=== PATIENT | male | born 1995 | race Caucasian/White ===

== ENCOUNTER → 2021-05-29 | Outpatient (CLI) | payer BC, SELFPAY | END | disposition home or self-care (01) | PROVIDERS: Visit Provider Physician Assistant | DX: U07.1 COVID-19 (principal) | CPT/HCPCS: 87635; U0005; U0003 ==

== ENCOUNTER 2021-06-03 15:01 | Outpatient (CLI) | payer BC, SELFPAY ==
[2021-06-03] MEDS: 0.9% Saline Lock 10 ML Syringe IV (15:16)
[2021-06-03 15:19] VITALS: BP 130/89; PULSE 65; RESP 16; TEMP 36.7; O2SAT 100; BMI 27.8
[2021-06-03 16:05] VITALS: BP 109/82; PULSE 56; RESP 16; TEMP 37.1; O2SAT 100
[2021-06-03 16:54] VITALS: BP 143/68; PULSE 65; RESP 16; TEMP 36.9; O2SAT 100
== END 2021-06-03 16:54 | disposition home or self-care (01) ==
LOC: MS2OUT 15:02 → MS2 15:02
PROVIDERS: Referring Provider Nurse Practitioner Adult Health; Visit Provider Nurse Practitioner Adult Health
DX: Z23 Encounter for immunization (principal); U07.1 COVID-19
CPT/HCPCS: J7050; M0243; A4216; Q0244

== ENCOUNTER → 2021-07-12 11:35 | Outpatient (CLI) | payer BC, SELFPAY ==
[2021-07-12 15:01] LABS: Absolute Lymphocyte Count 1.64 X10^3/uL (0.83-4.51); Absolute Neutrophil Count 3.1 X10^3/uL (2.0-7.7); Basophil# 0.02 X10^3/uL; Basophil% 0.4 % (0-1); Eosinophil# 0.08 X10^3/uL; Eosinophils% 1.5 % (0-5); Hematocrit 41.2 % (40-54); Hemoglobin 13.9 g/dL (13.0-16.5); Lymphocyte # 1.64 X10^3/ul (0.83-4.51); Mean Corp Hgb Conc 33.7 g/dL (32-36); Mean Corpuscular Hgb 31.4 pg (27.0-32.0); Mean Platelet Vol. 9.7 fl (6.2-12.0); Monocyte# 0.59 X10^3/uL; Monocyte% 10.8 % (0-10); NRBC Flagged by Analyzer 0 % (0-5); Neutrophil # 3.13 X10^3/uL (2.7-7.7); Neutrophil % 57.1 % (47-70); Platelet Count 370 K/mm3 (150-450); RBC Distribution Width CV 12.7 % (11.6-14.6); RBC Distribution Width SD 43.5 fl (35.1-43.9); Red Blood Count 4.43 M/mm3 (4.6-6.2); White Blood Count 5.5 K/mm3 (4.4-11.0)
[2021-07-12 15:40] LABS: ALB/GLOB Ratio 1.2 RATIO (0.9-2.4); AST(SGOT) 12 U/L (15-37); Alanine Aminotransfer ALT/SGPT 28 U/L (16-61); Alkaline Phosphatase 63 U/L (45-117); Anion Gap 7 (5-15); BUN 11 mg/dL (7-18); BUN/Creat Ratio 14.2 RATIO (10-20); Calcium,Total 8.9 mg/dL (8.5-10.1); Chloride 104 mmol/L (98-107); Cholesterol 121 mg/dL (200); Creatinine, Serum 0.78 mg/dL (0.70-1.30); EST Glomerular Filtration Rate 127 mL/min (>60); Est Glom Filt Rate - Afr Amer 153 mL/min (>60); Globulin 3.4 g/dL (2.2-4.2); Glucose 90 mg/dL (74-106); High Density Lipoprotein 51 mg/dL; Potassium 3.7 mmol/L (3.5-5.1); Protein, Total 7.4 g/dL (6.4-8.2); Sodium Level 138 mmol/L (136-145); Thyroid Stim Hormone (TSH) 0.52 uIU/mL (0.358-3.74); Triglycerides 58 mg/dL; Very Low Density Lipoprotein 12 mg/dL (5-40)
[2021-07-17 17:02] LABS: Testosterone, Free 11.48 ng/dL (5.00-21.00)
[2021-07-19 13:29] LABS: Testosterone, % Free 4.22 % (1.50-4.20)
== END ==
PROVIDERS: Referring Provider Nurse Practitioner Family; Visit Provider Nurse Practitioner Family
DX: Z00.00 Encounter for general adult medical examination without abnormal findings (principal)
CPT/HCPCS: 36415; 80053; 80061; 84402; 84403; 84443; 85025

== ENCOUNTER → 2023-03-09 | Outpatient (CLI) | payer BC, SELFPAY ==
--- NOTE | 2023-03-09 17:08 | US_ITS ---
STUDY: SUPERFICIAL ULTRASOUND - BILATERAL HIPS REASON FOR EXAM: Male, 27 years old. SUBCUTANEOUS NODULES - JUST ABOVE HIPS BILATERALY TECHNIQUE: A superficial ultrasound was performed with real-time and static casillas-scale imaging. COMPARISON: None. FINDINGS: No definite abnormality seen. Normal soft tissue planes. Electronically Signed: Jacob Sanchez MD at 13:25 EDT , US/Ext Non Vasc Limited/Soft Tiss IMPRESSION: undefined
== END | disposition home or self-care (01) ==
PROVIDERS: PCP Internal Medicine; Referring Provider Internal Medicine; Visit Provider Internal Medicine
DX: R22.9 Localized swelling, mass and lump, unspecified (principal)
CPT/HCPCS: 76882

== ENCOUNTER → 2024-01-27 | Outpatient (CLI) | payer BC, SELFPAY ==
--- NOTE | 2024-01-27 09:22 | RAD_ITS ---
STUDY: X-RAY - LEFT FOOT CLINICAL: Male, 28 years old. Pain. TECHNIQUE: 3 views of the left foot. COMPARISON: None. FINDINGS: Normal talus, calcaneus, and tarsal bones. Normal visualized subtalar, talonavicular, calcaneocuboid, tarsal and tarsometatarsal articulations. Normal metatarsi. Normal metatarsophalangeal joint of the great toe. Normal tibial and fibular sesamoid bones. Normal interphalangeal joint of the great toe. Normal phalanges of the great toe. Normal second through fifth metatarsophalangeal joints. Normal interphalangeal joints and phalanges of the lesser toes. The soft tissue structures are unremarkable. There is no demonstrated fracture. RAD/Foot min 3 Views IMPRESSION: Normal x-ray examination of the left foot. Electronically Signed: Keon Anderson MD at 10:02 EDT ,
== END | disposition home or self-care (01) ==
PROVIDERS: PCP Internal Medicine; Referring Provider Physician Assistant; Visit Provider Physician Assistant
DX: M79.672 Pain in left foot (principal)
CPT/HCPCS: 73630

== ENCOUNTER 2024-04-30 18:24 | Emergency (ER) | payer OTHER, SELFPAY ==
[2024-04-30 18:25] VITALS: BP 126/79; PULSE 87; RESP 16; TEMP 36.3; O2SAT 98
[2024-04-30 18:36] VITALS: BMI 27.1
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
[2024-04-30 21:04] VITALS: BP 126/71; PULSE 69; RESP 16; TEMP 36.6; O2SAT 99
== END 2024-04-30 21:04 | disposition home or self-care (01) ==
PROVIDERS: Emergency Provider Emergency Medicine; PCP Internal Medicine; Visit Provider Emergency Medicine
DX: S90.32XA Contusion of left foot, initial encounter (principal); S93.602A Unspecified sprain of left foot, initial encounter; V94.9XXA Unspecified water transport accident, initial encounter
CPT/HCPCS: 73630; 99284

== ENCOUNTER → 2024-05-09 | Outpatient (CLI) | payer BC, SELFPAY ==
--- NOTE | 2024-05-09 08:00 | US_ITS ---
STUDY: SCROTUM ULTRASOUND REASON FOR EXAM: Male, 29 years old. Scrotal varices TECHNIQUE: Ultrasound evaluation of the scrotum was performed with color Doppler and static casillas-scale imaging. COMPARISON: None. FINDINGS: RIGHT TESTICLE INTRATESTICULAR: There is a normal size of the right testicle. The right testicle measures 4.4 cm x 3.3 cm x 2.3 cm. There is a homogenous echotexture. There is normal arterial and normal venous vascularity. There is no demonstrated right testicular mass or cyst. EXTRATESTICULAR: The epididymis is normal in size. The epididymis head measures 0.9 cm x 1.1 cm x 0.8 cm. There is normal vascularity of the epididymis. There is no demonstrated epididymal cystic structure. There is a small hydrocele. There are prominent extratesticular veins consistent with a varicocele. There is no demonstrated extratesticular mass or cyst. LEFT TESTICLE INTRATESTICULAR: There is a normal size of the left testicle. The left testicle measures 4 cm x 2.9 cm x 2.3 cm. There is a homogenous echotexture. There is normal arterial and normal venous vascularity. There is no demonstrated left testicular mass or cyst. EXTRATESTICULAR: The epididymis is normal in size. The epididymis head measures 0.8 cm x 1.1 cm x 1.3 cm. There is normal vascularity of the epididymis. There is no demonstrated epididymal cystic structure. There is a small hydrocele. There are prominent extratesticular veins consistent with a varicocele. There is no demonstrated extratesticular mass or cyst. US/Testicular with Arterial Flow IMPRESSION: Small bilateral hydroceles. Bilateral varicoceles. Electronically Signed: Familia Keys MD at 15:07 EDT ,
== END | disposition home or self-care (01) ==
PROVIDERS: PCP Internal Medicine; Referring Provider Urology; Visit Provider Urology
DX: I86.1 Scrotal varices (principal)
CPT/HCPCS: 76870; 93976

== ENCOUNTER → 2024-05-17 | Outpatient (CLI) | payer BC, SELFPAY ==
[2024-05-17 13:53] LABS: Hematocrit 42.9 % (40-54); Hemoglobin 14.5 g/dL (13.0-16.5)
[2024-05-17 14:23] LABS: Estradiol 20.6 pg/mL; Follicle Stimulating Hormone 2.6 mIU/mL; Luteinizing Hormone 3.8 mIU/mL; Thyroid Stim Hormone (TSH) 0.447 uIU/mL (0.358-3.740)
[2024-05-17 14:25] LABS: Hemoglobin A1c 5.1 % (3.8-5.6)
[2024-05-19 11:09] LABS: PROLACTIN 15.9 ng/mL (3.9-22.7)
== END | disposition home or self-care (01) ==
LOC: LAB 13:24
PROVIDERS: PCP Internal Medicine; Referring Provider Urology; Visit Provider Urology
DX: E29.1 Testicular hypofunction (principal)
CPT/HCPCS: 36415; 82670; 83001; 83002; 83036; 84146; 84403; 84443; 85014; 85018

== ENCOUNTER 2024-12-14 18:20 | Emergency (ER) | payer OTHER, SELFPAY ==
[2024-12-14 18:21] VITALS: BP 128/80; PULSE 75; RESP 18; TEMP 36.4; O2SAT 100; BMI 29.5
--- NOTE | 2024-12-14 18:55 | EDS_ITS ---
HPI <BAHMAN Lewis - Last Filed: 12/14/24 19:20> History of Present Illness Chief Complaint: Laceration Narrative Narrative: Patient is a 29-year-old male with no stated medical history. Presenting to the Emergency Department with left third digit injury. Pay states that he was using a planer, when his left third finger went underneath it and got struck. Patient states that he does have a laceration to the distal tip of his thumb. No numbness or tingling. Tetanus vaccination is unknown. Here for evaluation. PFSH <BAHMAN Lewis - Last Filed: 12/14/24 19:20> PFSH Medical History Contusion of left foot Left ankle sprain Sprain of left foot Hypogonadism Body mass index (BMI) greater than 25 COVID-19 Home Medications ?Medication ?Instructions ?Recorded ?Last Taken ?Type dextroamphetamine sulfate 15 mg 15 mg PO DAILY 4 Unknown History capsule,extended release Allergy/AdvReac Type Severity Reaction Status Date / Time iodine Allergy Intermediate Rash Verified 12/14/24 18:21 Family History Mother COPD (chronic obstructive pulmonary disease) Grandmother COPD (chronic obstructive pulmonary disease) Surgical History Hx of hand surgery Hx of foot surgery Social History household members: spouse current occupational status: employed current occupation: [employer] Smoking Status: Never smoker Electronic Cigarette Use: not used alcohol intake: current alcohol intake frequency: a few times a month substance use type: does not use do you feel safe at home: Yes ROS <BAHMAN Lewis - Last Filed: 12/14/24 19:20> ROS ED ROS Narrative Constitutional: Negative for fever, chills, weight loss, weakness Eyes: Negative for vision loss, vision change, double vision ENT: Negative for any sore throat, ear pain, congestion Cardiovascular: Negative for any chest pain, tightness, palpitations Respiratory: Negative for any cough, sputum production, hemoptysis, dyspnea, dyspnea on exertion, orthopnea Gastrointestinal: Negative for any abdominal pain, nausea, vomiting, diarrhea, constipation, blood in stool, blood in vomit : Negative for any urinary frequency, dysuria, retention, blood in urine Muscle skeletal: Negative for any neck pain, back pain. Positive for left third finger pain Neurological: Negative for any headache, syncope, dizziness Skin: Negative for any rashes, itching, abrasions. Left third finger laceration Psychiatric: Negative for any depression, anxiety, stress, suicidal ideation, homicidal ideation Hematologic: Negative for any excessive bruising, easy bleeding EXAM <BAHMAN Lewis - Last Filed: 12/14/24 19:20> Physical Exam Narrative Exam Narrative: Vital signs reviewed. Extremities: Patient's left third finger to the distal tip does appear to have some trauma. There is a 1 cm thick laceration to the tip of the finger. There is no bony exposure. The base of the nail is intact. Patient has no numbness or tingling. Full range of motion. Neuro: Cranial nerves II through XII intact, no focal neurological deficits. Skin: Clean dry and intact with no rash, purpura, petechiae, vesicles or pustules. Backs/flank: No CVA tenderness, no midline spinal tenderness, no deformity. Psych: Normal mood and affect. No SI, HI or acute psychosis. Const Vital Signs: 12/14/24 18:21 Temperature 97.6 F L Temperature Source Temporal Pulse Rate 75 Respiratory Rate 18 Blood Pressure 128/80 H Blood Pressure Mean 96 Pulse Ox 100 Oxygen Delivery Method Room Air <Dr. Brian Ocampo DO - Last Filed: 12/16/24 00:26> Physical Exam Const Vital Signs: 12/14/24 18:21 Temperature 97.6 F L Temperature Source Temporal Pulse Rate 75 Respiratory Rate 18 Blood Pressure 128/80 H Blood Pressure Mean 96 Pulse Ox 100 Oxygen Delivery Method Room Air MDM <BAHMAN Lewis - Last Filed: 12/14/24 19:20> MDM Radiography Diagnostic Testing: Clinical Impression(s) from Imaging Studies Finger X-Ray 12/14/24 19:03 IMPRESSION: Small focal area of soft tissue laceration. No acute fracture. Reading Location: [facility] Treatment and Re-Evaluation Narrative: Differential diagnosis includes however is not limited to: Tuft fracture, simple laceration, avulsion like laceration, foreign body Patient appears generally well, vital signs are stable, patient is nontoxic- appearing. Presenting to the emergency department with left third finger laceration, injury. Patient will receive x-rays of the left middle finger, patient's tetanus vaccination be updated. Patient's wound will be cleansed, dressed. At this time, do not believe that patient would benefit from any suturing, is mostly an avulsion like laceration. After cleanse, patient will will have Gelfoam placed and will follow-up outpatient. Patient's x-ray of the left third finger was negative. I was able to cleanse the area. I was then able to dress with Gelfoam and a finger tube gauze. Patient was up-to-date on his tetanus vaccination today. He will keep the area clean and dry. All questions answered, patient stable for discharge <Dr. Brian Ocampo, DO - Last Filed: 12/16/24 00:26> [facility] Narrative Medical decision making narrative: I have personally performed a face to face assessment of the patient and have reviewed the TAMY Note. I performed a substantive portion of the visit including all aspects of the following. My graves findings include: History is [patient presents to the emergency department with a laceration to his left middle finger. Patient states that he was using a planer when he accidentally lacerated his finger. Patient is ambidextrous. Unsure of his last tetanus shot.] Exam is [HEENT-PERRLA, EOMI. Cranial nerves II through XII grossly intact. TMs clear. Mucous membranes moist. No adenopathy. Cardiovascular-regular rate and rhythm without murmur or ectopy Lungs-clear to auscultation, chest wall stable without crepitus or subcu emphysema Abdomen-normoactive bowel sounds, soft, nontender, no rebound or rigidity, no peritoneal signs. Extremities-intact ?4, normal range of motion, normal pulses. Left long finger- patient has a macerated skin tear/abrasion and laceration involving the distal tip of the distal phalanx. Small scalloping type wound into the center portion of the distal nail. No deep lacerations noted. Neurovascularly intact. Normal range of motion at the DIP and PIP joint. Medical Decison Making [patient will have a clean dressing applied. Advised to follow-up with primary care physician in 3 to 5 days. There is no suture repair indicated.] Other additions or changes: [None] Radiography Diagnostic Testing: Clinical Impression(s) from Imaging Studies Finger X-Ray 12/14/24 19:03 IMPRESSION: Small focal area of soft tissue laceration. No acute fracture. Reading Location: [place] Three-view x-rays of the left middle finger obtained interpreted by myself no evidence of fracture or dislocation. No foreign bodies noted Discharge Plan Triage Chief Complaint: Laceration ED Midlevel Provider: Jose Alberto Galvan ED Provider: Brian Ocampo Dx/Rx/DC Orders Clinical Impression: Finger injury, Finger laceration Instructions: ED Laceration, Old: Not Sutured, ED Laceration Extremity Prescriptions: No Action dextroamphetamine sulfate 15 mg capsule, extended release 15 mg PO DAILY Rx Instructions: 2 at 8pm 1 at 8 am Primary Care Provider: Irasema Weston Referrals: Irasema Weston MD [Primary Care Provider] - Activity Restrictions/Additional Instructions: Keep the area clean and dry. The dressing I placed keep on for 24 hours then clean with warm soap and water. This is likely going to heal from the inside out. Return for any redness. Print Language: Greenlandic Disposition Disposition: Home, Self Care Discharge Date/Time: 12/14/24 19:46
--- NOTE | 2024-12-14 19:03 | RAD_ITS ---
PROCEDURE: FINGER(S) MIN 2 VIEWS 12/14/2024 REASON FOR EXAM: INJURY LEFT 3RD TECHNIQUE: 3 view(s) of the left 3rd digit COMPARISON: None FINDINGS: Bones: No acute fracture. Joints: Normal alignment. Soft tissues: Small focal area of soft tissue laceration. Other: RAD/Finger(s) Min 2 Views IMPRESSION: Small focal area of soft tissue laceration. No acute fracture. Reading Location: [facility]
[2024-12-14] MEDS: Diphth,Pertuss(Acell),Tet Vac 0.5 ML Vial IM (19:14)
[2024-12-14 19:50] VITALS: BP 126/70; PULSE 74; RESP 18; TEMP 36.6; O2SAT 100
== END 2024-12-14 19:46 | disposition home or self-care (01) ==
LOC: ED 19:37
PROVIDERS: Emergency Provider Emergency Medicine; PCP Internal Medicine; Visit Provider Emergency Medicine
DX: S61.213A Laceration without foreign body of left middle finger without damage to nail, initial encounter (principal); W26.8XXA Contact with other sharp object(s), not elsewhere classified, initial encounter
CPT/HCPCS: 12001; 73140; 90471; 90715; 99283